=== PATIENT | female | born 1990 | race American Indian/Alaskan Native ===

== ENCOUNTER 2017-12-27 13:56 | Emergency (ER) | payer OTHER, MEDICAID ==
[2017-12-27 14:23] VITALS: BP 117/83
[2017-12-27] MEDS ORDERED: MOTRIN PO ONE (15:23)
[2017-12-27] MEDS ORDERED: NORCO 5/325 PO ONE (15:23)
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
== END 2017-12-27 16:57 | disposition home or self-care (01) ==
LOC: ED 13:56
DX: R07.89 Other chest pain (principal); V89.2XXA Person injured in unspecified motor-vehicle accident, traffic, initial encounter; Y93.89 Activity, other specified; Y92.89 Other specified places as the place of occurrence of the external cause; Y99.8 Other external cause status
CPT/HCPCS: 71046; 93005; 93010; 99284

== ENCOUNTER 2018-02-18 05:38 | Emergency (ER) | payer MEDICAID, OTHER ==
[2018-02-18 06:27] VITALS: BP 110/77
--- NOTE | 2018-02-18 07:56 | Emergency Department Report ---
ED Rash HPI - HPI Chief Complaint: Skin Rash Stated Complaint: SKIN IRRITATION Time Seen by Provider: 02/18/18 07:06 Duration: 1 month Location: Head, Upper Extremities (bilateral hand), Lower Extremities (right medial foot) Suspected Cause: Other (eczema flare) Rash Symptoms: Yes Itching, Yes Blistering, No Facial Swelling, No Tongue/Oral Swelling, No Breathing Difficulties, No Choking Sensation, No Wheezing/Dyspnea, No Peeling, No Fever, No Lightheaded, No Malaise, No Myalgias Severity: moderate Other History: This is a 27-year-old -[place] female who presents with pruritus rash to forehead, both hands, and right medial foot for one month. Patient states she has a history of eczema but unable to follow up with her primary care because she does not have insurance for prescribed medication. Patient states this is the worst it is ever being been. Patient states she is itching all over. She has been soaking and cold water and taking Benadryl with no improvement of symptoms. Patient states she is not a person in her house who have the symptoms and assumed it was related to her eczema. Patient denies change in laundry detergent or soaps or upper respiratory infection. Patient denies nausea or vomiting, fever, chest pain, drooling, difficulty swallowing, or sore throat. ED Review of Systems ROS: Stated complaint: SKIN IRRITATION Other details as noted in HPI Constitutional: denies: chills, fever Respiratory: denies: cough, shortness of breath, wheezing Cardiovascular: denies: chest pain, palpitations Gastrointestinal: denies: abdominal pain, nausea, diarrhea Skin: rash, pruritus. denies: lesions, change in color, change in hair/nails Neurological: denies: headache, weakness, numbness, paresthesias Psychiatric: denies: anxiety, depression ED Past Medical Hx - Past Medical History Additional medical history: Eczema - Surgical History Past Surgical History?: No - Social History Smoking Status: Never Smoker Substance Use Type: None - Medications Home Medications: Home Medications Medication Instructions Recorded Confirmed Last Taken Type HYDROcodone/APAP 5-325 [[place] 1 each PO Q4HR PRN #12 tablet 12/27/17 Unknown Rx 5/325] Ibuprofen [Motrin] 800 mg PO Q8HR PRN #20 tablet 12/27/17 Unknown Rx methOCARBAMOL [Robaxin TAB] 500 mg PO Q6H PRN #15 tablet 12/27/17 Unknown Rx Hydroxyzine HCl 25 mg PO Q6H PRN #15 tablet 02/18/18 Unknown Rx Triamcinolone 0.1% [Kenalog 0.1% 1 applic TP TID #60 g 02/18/18 Unknown Rx CREAM] Rash Exam - Exam General: Vital signs noted. No distress. Alert and acting appropriately. HEENT: No Periorbital Edema, No Conjuctival Injection, No Chemosis, No Perioral Edema, No Tongue Edema, No Uvular Edema, No Compromised Airway, No Drooling Lungs: Yes Good Air Exchange (Normal Breath Sounds), No Wheezes, No Ronchi, No Stridor, No Cough, No Labored Respirations, No Retractions, No Use of Accessory Muscles, No Other Abnormal Lung Sounds Heart: Yes Regular, No Murmur Skin: Yes Excoriations (erythematous scaling excoriations to both hands, forehead, and right medial foot), Yes Erythema, No Urticarial Rash, No Maculopapular Rash, No Morbilliform rash, No Bulla(e), No Weeping, No Tenderness , No Edema, No Encrustations ED Course Vital Signs 02/18/18 06:19 Temperature 98.8 F Pulse Rate 73 Respiratory 18 Rate Blood Pressure 110/77 O2 Sat by Pulse 100 Oximetry ED Medical Decision Making - Medical Decision Making This is a 27-year-old female that presents with a rash before he is, both hands , and right medial foot for one month. Patient has a history of eczema. Patient examined by me. No distress noted. Vitals stable. Patient is drinking fluids w/o distress in ER. Patient given dexamethasone 8 mg IM once while in ER. Physical assessment susceptible of a topic dermatitis. Start triamcinolone cream and hydroxyzine. Discussed plan with patient and she agreed with plan. Follow-up with [facility] for continuous management of eczema. Critical care attestation.: If time is entered above; I have spent that time in minutes in the direct care of this critically ill patient, excluding procedure time. ED Disposition Clinical Impression: Eczema of both hands, Eczema of scalp Atopic dermatitis Qualifiers: Atopic dermatitis type: intrinsic Qualified Code(s): L20.84 - Intrinsic ( allergic) eczema Disposition: TO HOME OR SELFCARE Is pt being admited?: No Does the pt Need Aspirin: No Condition: Stable Instructions: Eczema (ED) Additional Instructions: After showering or bathing apply lotion to her entire body while skin is still damp. Follow-up with primary care provider at medical clinic for management of chronic condition. Avoid soaking in hot and warm water for long periods of time to avoid driving out scan. Follow-up with the primary care provider in 2-3 days. Prescriptions: Hydroxyzine HCl 25 mg PO Q6H PRN #15 tablet PRN Reason: Itching Triamcinolone 0.1% [Kenalog 0.1% CREAM] 1 applic TP TID #60 g Referrals: [facility] [Outside] - 3-5 Days [facility] [Outside] - 3-5 Days [facility] [Outside] - 3-5 Days Time of Disposition: 08:03 Print Language: VENEZUELAN
[2018-02-18] MEDS ORDERED: DECADRON IV ONE (08:03)
== END 2018-02-18 08:20 | disposition home or self-care (01) ==
LOC: ED 05:38
DX: L20.84 Intrinsic (allergic) eczema (principal)
CPT/HCPCS: 96374; 99282; J1100

== ENCOUNTER 2021-12-16 05:17 | Emergency (ER) | payer MEDICAID ==
[2021-12-16 06:27] VITALS: BP 113/77
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
[2021-12-16] MEDS ORDERED: methylPREDNISolone ACETATE 80 MG/1 ML INJ IM ONE (09:06)
[2021-12-16] MEDS ORDERED: KETOROLAC 60 MG/2 ML INJ IM ONE (09:06)
== END 2021-12-16 11:04 | disposition home or self-care (01) ==
LOC: ED 05:17
DX: G89.29 Other chronic pain (principal); M54.9 Dorsalgia, unspecified
CPT/HCPCS: 96372; 99282; J1040; J1885